=== PATIENT | male | born 1955 | race Caucasian/White ===

== ENCOUNTER → 2017-09-01 | Outpatient (CLI) | payer BC ==
[~2017-09-01] MED LIST: Cardizem CD,Cartia X PO; DIOVAN160 MG PO; FLAXSEED OIL1000 M2 PO; FLOMAX0.4 MG PO; Imdur PO; LISINOPRIL-HCT1 EAC3 PO; LYRICA150 MG PO; MOTRIN800 MG PO; Micro-K,K-Tab,K-Dur, PO; NORCO 7.5/321 TABLET PO; OXYCODONE HCL5 MG PO; PRILOSEC20 MG PO; TIAZAC420 MG PO; TYLENOL REGULA325 MG PO; VICODIN,LORT1 TABLET PO; ZOFRAN ODT4 MG PO; ZOFRAN4 MG PO
== END | disposition home or self-care (01) ==
LOC: CDC 08:21
DX: Z01.810 Encounter for preprocedural cardiovascular examination (principal); J32.9 Chronic sinusitis, unspecified; R00.1 Bradycardia, unspecified
CPT/HCPCS: 93000

== ENCOUNTER 2017-09-04 08:14 | Observation (INO) | payer BC ==
[~2017-09-04] VITALS: Ht 180.3 cm; Wt 85.5 kg
[~2017-09-04 08:14] MED LIST changes: +K-DUR10 MEQ PO; -LISINOPRIL-HCT1 EAC3 PO; +LISINOPRIL30 MG PO; -Micro-K,K-Tab,K-Dur, PO
[2017-09-04 11:24] LABS: BASOPHIL (%) 0.2 % (0-1); BASOPHIL COUNT 0.1 K/uL (0-0.1); EOSINOPHIL (%) 0 % (0-5); HEMATOCRIT 42.5 % (38.0-50.0); IMMATURE GRANULOCYTE (%) 2.3 % (0.0-0.7); LYMPHOCYTE (%) 7.2 % (15-42); LYMPHOCYTE COUNT 1.5 K/uL (1.0-2.8); MCHC 32.9 G/DL (30.0-36.0); MONOCYTE (%) 8.7 % (3-12); MONOCYTE COUNT 1.8 K/uL (0-0.8); NEUTROPHIL (%) 81.6 % (45-76); NEUTROPHIL COUNT 16.8 K/uL (1.8-6.4); PLATELET COUNT 268 K/uL (156-360); RBC DIS.WIDTH-CV 12.9 % (11.8-14.6); RBC DIS.WIDTH-SD 42.9 % (39-53); RED BLOOD COUNT 4.67 M/uL (4.00-5.50); WHITE BLOOD COUNT 20.6 K/uL (4.1-10.2)
[2017-09-04] MEDS ORDERED: XANAX0.25 MG PO (12:01)
[2017-09-04] MEDS ORDERED: CARDIZEM CD240 MG PO (15:12)
[2017-09-04] MEDS ORDERED: CYANOCOBALAMIN PO (15:13)
[2017-09-04] MEDS ORDERED: GINSENG PO (15:13)
[2017-09-04 15:26] LABS: HEMATOCRIT 38.3 % (38.0-50.0); HEMOGLOBIN 12.9 G/DL (12.5-16.6); MCH 30.6 PG (29.0-34.0); MCHC 33.7 G/DL (30.0-36.0); PLATELET COUNT 221 K/uL (156-360); RBC DIS.WIDTH-SD 42.6 % (39-53); RED BLOOD COUNT 4.21 M/uL (4.00-5.50); WHITE BLOOD COUNT 16.9 K/uL (4.1-10.2)
[2017-09-04 20:18] VITALS: BP 130/76
[2017-09-05 01:02] VITALS: BP 128/66
[2017-09-05 04:33] VITALS: BP 161/76
[2017-09-05 05:54] LABS: HEMATOCRIT 35.4 % (38.0-50.0); HEMOGLOBIN 11.4 G/DL (12.5-16.6); MCH 30.1 PG (29.0-34.0); MCHC 32.2 G/DL (30.0-36.0); MCV 93.4 FL (86-99); PLATELET COUNT 164 K/uL (156-360); RBC DIS.WIDTH-CV 13.3 % (11.8-14.6); RBC DIS.WIDTH-SD 45.6 % (39-53); RED BLOOD COUNT 3.79 M/uL (4.00-5.50); WHITE BLOOD COUNT 11.5 K/uL (4.1-10.2)
[2017-09-05 06:17] LABS: CHLORIDE 107 MEQ/L (99-109); GFR ESTIMATE (CALCULATED) > 59 mL/min/ (58.99-99999); GLUCOSE 85 mg/dL (70-99); POTASSIUM 4.4 MEQ/L (3.7-5.4); SODIUM 141 MEQ/L (136-147); UREA NITROGEN (BUN) 36 mg/dL (9-23)
[2017-09-05 07:51] VITALS: BP 152/73
[2017-09-05 11:09] VITALS: BP 119/58
[2017-09-05] MEDS ORDERED: ALPRAZOLAM0.25 M2 PO (14:49)
== END 2017-09-05 15:29 | disposition home or self-care (01) ==
LOC: EME 08:14 → EDOF 14:07 → ENRESERV 14:10 → EDOF 14:30 → ENRESERV 17:54 → 5WEST 19:54 → ENPENDDIS 09-05 → 5WEST 09-05 15:29
PROVIDERS: Hospitalist; Physician Assistant
PROC: 0W3Q7ZZ Control Bleeding in Respiratory Tract, Via Natural or Artificial Opening (ICD-10-PCS; principal; 2017-09-04)
PROC: 09JK8ZZ Inspection of Nasal Mucosa and Soft Tissue, Via Natural or Artificial Opening Endoscopic (ICD-10-PCS; 2017-09-05)
DX: R04.0 Epistaxis (principal); Z98.890 Other specified postprocedural states; I10 Essential (primary) hypertension; K21.9 Gastro-esophageal reflux disease without esophagitis
CPT/HCPCS: 80048; 85025; 85027; 86850; 86900; 86901; G0378; J2060; J2270; J7030